=== PATIENT | female | born 1960 | race Caucasian/White ===

== ENCOUNTER → 2017-06-12 08:33 | Outpatient (CLI) | payer MEDICAID, SELFPAY ==
[2017-06-12 09:13] LABS: Basophils % 0.4 % (0.1-2.0); Eosinophils # 0.1 K/mm3 (0.0-0.4); Eosinophils % 2.8 % (0.1-12.0); Hematocrit 38.3 % (37.0-47.0); Hemoglobin 12.4 g/dL (12.2-16.2); Lymphocytes % 22.5 K/mm3 (10-50); Mean Corpuscular HGB Conc 32.3 g/dL (31.8-35.4); Mean Corpuscular Hemoglobin 32.6 pg (27.0-31.2); Mean Corpuscular Volume 100.8 fl (81-99); Mean Platelet Volume 8.2 fl (7.4-10.4); Monocytes # 0.3 K/mm3 (0.1-1.0); Monocytes % 6.5 % (1.7-9.3); Neutrophils # 3.1 K/mm3 (1.8-7.8); Neutrophils % 67.8 % (37.0-80.0); Platelet Count 160 K/mm3 (142-424); Red Cell Distribution Width 12.6 % (11.5-17.5); White Blood Count 4.6 K/mm3 (4.8-10.8)
[2017-06-12 09:33] LABS: Alanine Aminotransferase 17 U/L (12-78); Albumin Level 3.4 gm/dL (3.4-5.0); Albumin/Globulin Ratio 0.9 (1.1-1.8); Alkaline Phosphatase 151 U/L (46-116); Anion Gap 6.6 mEq/L (5-15); Aspartate Amino Transferase 13 U/L (15-37); Bilirubin,Total 0.4 mg/dL (0.2-1.0); Blood Urea Nitrogen 17 mg/dL (7-18); Calcium 9.1 mg/dL (8.5-10.1); Carbon Dioxide 33 mmol/L (21.0-32.0); Chloride 102 mmol/L (98-107); Creatinine,Serum 0.88 mg/dL (0.55-1.02); Estimated Glomerular Filt Rate 66 ml/min (>60); GFR (African American) 80 ML/MIN (>60); Globulin 3.9 gm/dl (1.3-3.2); Glucose 80 mg/dL (74-106); Potassium 4.6 mmoL/L (3.5-5.1); Sodium 137 mmol/L (136-145); Total Protein,Serum 7.3 gm/dL (6.4-8.2)
== END ==
PROVIDERS: Visit Provider Internal Medicine
DX: D64.9 Anemia, unspecified (principal)
CPT/HCPCS: 36415; 80053; 85025

== ENCOUNTER → 2018-10-29 16:28 | Outpatient (CLI) | payer MEDICAID, SELFPAY ==
--- NOTE | 2018-10-29 | XR_ITS ---
XR chest 2V HISTORY: Shortness of air, ITS.REASON: SOA ORDERING PHYSICIAN: Rafi Corral MD PATIENT AGE: 58 years COMPARISON: None FINDINGS: There is borderline cardiomegaly without failure. Groundglass nodular density is noted in the right upper lobe laterally at 14 mm. The remaining lungs are clear. No effusions. IMPRESSION: 14 mm groundglass opacity noted in the right upper lobe. This could be due to a small area of infiltrate. Cannot exclude the possibility of a developing nodule. CT may better differentiate.
== END ==
PROVIDERS: PCP Family Medicine; Visit Provider Family Medicine
DX: R06.02 Shortness of breath (principal)
CPT/HCPCS: 71046

== ENCOUNTER → 2018-11-13 12:34 | Outpatient (CLI) | payer MEDICAID, SELFPAY ==
--- NOTE | 2018-11-13 12:43 | CT_ITS ---
CT chest w con HISTORY: ITS.REASON: DYSPNEA ON EXERTION, ABNORMAL CXR ORDERING PHYSICIAN: Rafi Corral MD PATIENT AGE: 58 years COMPARISON: 10/29/2018 Technique: Contrast Used:75ml Optiray 350 Axial images were obtained. Sagittal, and coronal reformatted images are also generated and reviewed. All CT scans at the facility use one or more dose reduction, viz: automated exposure control, ma/kV adjustment per patient size (including targeted exams where dose is matched to indication, i.e. head), or iterative reconstruction technique. FINDINGS: Calcified nodes are present in the mediastinum and right hilum. Normal heart size. Small hiatal hernia is present with mild thickening of the mid and distal esophagus. There are coronary artery calcifications Patchy subpleural increased density in the right upper lobe laterally corresponding to the radiographic abnormality. This area measures approximately 2.6 x 1.6 cm. There is a calcified granuloma also in the right upper lobe. No pleural effusion. Upper abdominal images demonstrates a thickened bowel loop in the mid abdominal region. This is incompletely imaged and appears to represent a thickened loop of jejunum. IMPRESSION: 1. Patchy subpleural density in the right upper lobe laterally corresponds to the radiographic abnormality. Nonspecific and may represent an area of infiltrate or scarring. Neoplasm is not totally excluded. Suggest 3 month follow up. 2. Hiatal hernia with thickened distal. At this which may be seen with reflux esophagitis. 3. Old granulomatous disease. 4. Thickened small bowel loop in the upper abdomen suggesting enteritis. CT abdomen may be of further value if warranted
[2018-11-13 12:51] LABS: Blood Urea Nitrogen 15 mg/dL (7-18); Creatinine,Serum 0.96 mg/dL (0.55-1.02); Estimated Glomerular Filt Rate 59 ml/min (>60); GFR (African American) 72 ML/MIN (>60)
== END ==
PROVIDERS: Visit Provider Family Medicine
DX: R06.09 Other forms of dyspnea (principal); R93.89 Abnormal findings on diagnostic imaging of other specified body structures
CPT/HCPCS: 36415; 71260; 82565; 84520; Q9967

== ENCOUNTER → 2019-02-16 11:37 | Outpatient (CLI) | payer OTHER, SELFPAY ==
--- NOTE | 2019-02-16 12:13 | CT_ITS ---
PROCEDURE: CT CHEST W CON CLINCAL INDICATION: ABN CT OF CHEST /follow-up abnormal chest CT COMPARISON: CHESTW CT chest w con from 11/13/2018 TECHNIQUE: IV Contrast: 75ml Optiray 350 Axial images obtained with sagittal and coronal reformats. All CT scans at the facility use one or more dose reduction, viz: automated exposure control, ma/kV adjustment per patient size (including targeted exams where dose is matched to indication, i.e. head), or iterative reconstruction technique. FINDINGS: HEART,AORTA,PULMONARY ARTERIES coronary artery calcifications are present. Normal heart size. No evidence of aortic aneurysm or central pulmonary embolus. MEDIASTINAL AND HILAR STRUCTURES: A partially calcified mediastinal lymph nodes once again noted. There is mild thickening of the distal esophagus containing a small amount of air. This is nonspecific but could be seen with reflux esophagitis. The LUNGS: There is patchy peripheral consolidation once again noted in the right upper lobe posterior laterally. This appears slightly more prominent on the axial images but does not appear significantly changed on the reformatted coronal images. This is probably not significantly changed. The slight difference on the axial images may be related to slice orientation. Continued follow-up is suggested. No bony destruction evident. Calcified granuloma is present in the right upper lobe. No new pulmonary abnormalities PLEURAL SPACES: No significant effusion. No evidence of pneumothorax. BONY STRUCTURES: No acute bony abnormalities apparent. LYMPH NODES: Partially calcified nodes are present in the mediastinum. There are small nodes in the aortopulmonic window which are unchanged. UPPER ABDOMEN: Mild thickening of the distal esophagus ADDITIONAL FINDINGS: No other significant abnormalities. IMPRESSION: 1. Probably no significant change involving the peripheral consolidation in the right upper lobe. Suggest continued follow-up in 6 months. 2. Possible esophagitis 3. Otherwise negative Dictated by: Bin Tang MD 02/17/2019 07:21 Electronically signed by Bin Tang MD in [facility] 02/17/2019 07:21
--- NOTE | 2019-02-16 12:19 | XR_ITS ---
PROCEDURE: XR CHEST 2V CLINICAL HISTORY: PATCHY SUBPLEURAL DENSITY RT UPPER LOBE SEEN ON CT The COMPARISON: CHESTW CT chest w con from 11/13/2018 CT CHEST W CON from 02/16/2019 FINDINGS: The cardiomediastinal silhouette and pulmonary vascularity are within normal limits. Patchy density is once again noted in the subpleural region of the right upper lobe corresponding to the CT abnormality. Calcified granuloma is present in the right upper lobe. The remaining lungs are clear. There exaggeration of the thoracic kyphosis No acute bony abnormalities. IMPRESSION: Nonspecific patchy density once again noted in the right upper lobe in the subpleural region. This is nonspecific and could be related to chronic infection or inflammatory process, scarring, or even neoplasm. Dictated by: Bin Tang MD 02/16/2019 16:42 Electronically signed by Bin Tang MD in [facility] 02/16/2019 16:42
[2019-02-16 12:20] LABS: Blood Urea Nitrogen 17 mg/dL (7-18); Estimated Glomerular Filt Rate 57 ml/min (>60); GFR (African American) 68 ML/MIN (>60)
== END ==
PROVIDERS: PCP Family Medicine; Visit Provider Family Medicine
DX: R93.89 Abnormal findings on diagnostic imaging of other specified body structures (principal)
CPT/HCPCS: 36415; 71046; 71260; 82565; 84520; Q9967

== ENCOUNTER → 2019-06-22 10:06 | Outpatient (CLI) | payer OTHER, SELFPAY ==
--- NOTE | 2019-06-22 10:13 | XR_ITS ---
PROCEDURE: XR FOOT WT BEARING LT 3V CLINICAL INDICATION: charcot Pain and swelling COMPARISON: [id number] XR foot RT min 3V from 09/26/2017 [id number] XR foot LT min 3V from 08/19/2018 FINDINGS: Osteoarthritic changes are present at the 1st MTP joint. There are degenerative changes in the midfoot at the talonavicular and calcaneocuboid joints. There is pes planus. Hypertrophic changes are present dorsally at the talonavicular joint. There is a small calcaneal spur. IMPRESSION: No change in the degenerative changes with pes planus Dictated by: Bin Tang MD 06/22/2019 11:58 Electronically signed by Bin Tang MD in [facility] 06/22/2019 11:58
--- NOTE | 2019-06-22 10:13 | XR_ITS ---
PROCEDURE: XR ANKLE WT BEARING LT MIN 3V CLINICAL INDICATION: charcot Left foot and ankle pain COMPARISON: ANKCMRT XR ankle RT min 3V from 09/26/2017 XR ANKLE LT MIN 3V from 06/11/2019 FINDINGS: There has been interval development of a nondisplaced fracture involving the distal shaft of the fibula. The fracture is 6 cm proximal to the tip of the fibula. The ankle mortise appears preserved. There is mild lateral angulation of the distal fracture fragment. The ankle joint is slightly narrowed laterally. IMPRESSION: Nondisplaced distal fibular fracture as described above Dictated by: Bin Tang MD 06/22/2019 11:51 Electronically signed by Bin Tang MD in [facility] 06/22/2019 11:51
== END ==
PROVIDERS: PCP Family Medicine; Visit Provider Podiatrist
DX: M14.672 Charcot's joint, left ankle and foot (principal); M79.672 Pain in left foot
CPT/HCPCS: 73610; 73630

== ENCOUNTER → 2019-07-07 09:26 | Outpatient (CLI) | payer OTHER, SELFPAY ==
--- NOTE | 2019-07-07 09:34 | XR_ITS ---
PROCEDURE: XR FOOT WT BEARING LT 3V CLINICAL INDICATION: charcot COMPARISON: [id number] XR foot RT min 3V from 09/26/2017 [id number] XR foot LT min 3V from 08/19/2018 XR FOOT WT BEARING LT 3V from 06/22/2019 FINDINGS: Osteoarthritic change 1st MTP joint with bony hypertrophy. Hammertoe deformity digits 2 through 5. Osteoarthritis of the foot at the calcaneocuboid, talonavicular, navicular cuneiform joint. Osteoarthritic changes of the anterior and posterior subtalar joint with severe pes planus. IMPRESSION: No change osteoarthritis of the foot with pes planus Dictated by: Bin Tang MD 07/07/2019 15:29 Electronically signed by Bin Tang MD in [facility] 07/07/2019 15:29
--- NOTE | 2019-07-07 09:34 | XR_ITS ---
PROCEDURE: XR ANKLE WT BEARING LT MIN 3V CLINICAL INDICATION: charcot Pain COMPARISON: [id number] XR ankle RT min 3V from 09/26/2017 XR ANKLE LT MIN 3V from 06/11/2019 XR ANKLE WT BEARING LT MIN 3V from 06/22/2019 FINDINGS: There is a healing fracture involving the distal shaft of the fibula with minimal lateral angulation of the distal fracture fragment. The fracture is nondisplaced. There is overlying developing callus formation. There remains mild narrowing of the ankle joint space laterally. IMPRESSION: Healing fracture of the distal fibula Dictated by: Bin Tang MD 07/07/2019 15:21 Electronically signed by Bin Tang MD in [facility] 07/07/2019 15:21
== END ==
PROVIDERS: PCP Family Medicine; Visit Provider Podiatrist
DX: M14.672 Charcot's joint, left ankle and foot (principal)
CPT/HCPCS: 73610; 73630

== ENCOUNTER → 2019-07-21 08:50 | Outpatient (CLI) | payer OTHER, SELFPAY ==
--- NOTE | 2019-07-21 08:55 | XR_ITS ---
PROCEDURE: XR FOOT WT BEARING LT 3V CLINICAL INDICATION: charcot follow up, fracture COMPARISON: [id number] XR foot RT min 3V from 09/26/2017 [id number] XR foot LT min 3V from 08/19/2018 XR FOOT WT BEARING LT 3V from 06/22/2019 XR FOOT WT BEARING LT 3V from 07/07/2019 FINDINGS: There is severe pes planus with osteoarthritic change of the talonavicular joint and calcaneocuboid joint. Overall not significantly changed. The joint spaces are well-preserved. No significant degenerative/arthritic changes. No erosive changes evident. Other findings:Hammertoe deformity 2 through 5 toes. Osteoarthritis 1st MTP joint IMPRESSION: Overall no change severe pes planus with osteoarthritis Dictated by: Bin Tang MD 07/21/2019 11:15 Electronically signed by Bin Tang MD in [facility] 07/21/2019 11:15
--- NOTE | 2019-07-21 08:55 | XR_ITS ---
PROCEDURE: XR ANKLE WT BEARING LT MIN 3V CLINICAL INDICATION: charcot follow up Follow-up fracture COMPARISON: ANKCMRT XR ankle RT min 3V from 09/26/2017 XR ANKLE LT MIN 3V from 06/11/2019 XR ANKLE WT BEARING LT MIN 3V from 06/22/2019 XR ANKLE WT BEARING LT MIN 3V from 07/07/2019 FINDINGS: There is a healing distal fibular fracture with developing callus formation nondisplaced with minimal lateral angulation of the distal fracture fragment. The talus is tilted and slightly everted. Talar dome has an unremarkable appearance. Severe pes planus noted IMPRESSION: Healing distal fibular shaft fracture with mild talar tilt Dictated by: Bin Tang MD 07/21/2019 11:13 Electronically signed by Bin Tang MD in [facility] 07/21/2019 11:13
== END ==
PROVIDERS: PCP Family Medicine; Visit Provider Podiatrist
DX: S82.832A Other fracture of upper and lower end of left fibula, initial encounter for closed fracture (principal); E11.610 Type 2 diabetes mellitus with diabetic neuropathic arthropathy
CPT/HCPCS: 73610; 73630

== ENCOUNTER → 2019-08-20 08:31 | Outpatient (CLI) | payer OTHER, SELFPAY ==
--- NOTE | 2019-08-20 08:36 | XR_ITS ---
PROCEDURE: XR FOOT WT BEARING LT 3V CLINICAL INDICATION: follow up Charcot foot, follow-up COMPARISON: [id number] XR foot LT min 3V from 08/19/2018 XR FOOT WT BEARING LT 3V from 06/22/2019 XR FOOT WT BEARING LT 3V from 07/07/2019 XR FOOT WT BEARING LT 3V from 07/21/2019 XR ANKLE WT BEARING LT MIN 3V from 08/20/2019 FINDINGS: There is diffuse osteopenia with severe pes planus and osteoarthritic change of the midfoot with hammertoe deformity similar to the previous exam. There is an old fracture of the distal shaft of the fibula. The talus is slightly allyson it. There is a small calcaneal spur. No bony destructive process apparent. Overall no significant change from the previous study. Osteoarthritic changes are present at the 1st MTP joint. There are old fractures of the distal aspect of the 3rd and 4th metatarsals IMPRESSION: No change severe pes planus with midfoot osteoarthritic change. Dictated by: Bin Tang MD 08/20/2019 10:30 Electronically signed by Bin Tang MD in [facility] 08/20/2019 10:30
--- NOTE | 2019-08-20 08:36 | XR_ITS ---
PROCEDURE: XR FOOT WT BEARING LT 3V CLINICAL INDICATION: follow up Charcot foot, follow-up COMPARISON: [id number] XR foot LT min 3V from 08/19/2018 XR FOOT WT BEARING LT 3V from 06/22/2019 XR FOOT WT BEARING LT 3V from 07/07/2019 XR FOOT WT BEARING LT 3V from 07/21/2019 XR ANKLE WT BEARING LT MIN 3V from 08/20/2019 FINDINGS: There is diffuse osteopenia with severe pes planus and osteoarthritic change of the midfoot with hammertoe deformity similar to the previous exam. There is an old fracture of the distal shaft of the fibula. The talus is slightly allyson it. There is a small calcaneal spur. No bony destructive process apparent. Overall no significant change from the previous study. Osteoarthritic changes are present at the 1st MTP joint. There are old fractures of the distal aspect of the 3rd and 4th metatarsals IMPRESSION: No change severe pes planus with midfoot osteoarthritic change. Dictated by: Bin Tang MD 08/20/2019 10:30 Electronically signed by Bin Tang MD in [facility] 08/20/2019 10:30
== END ==
PROVIDERS: PCP Family Medicine; Visit Provider Podiatrist
DX: M14.672 Charcot's joint, left ankle and foot (principal); S82.832A Other fracture of upper and lower end of left fibula, initial encounter for closed fracture; S93.402A Sprain of unspecified ligament of left ankle, initial encounter
CPT/HCPCS: 73610; 73630

== ENCOUNTER → 2019-09-03 13:32 | Outpatient (CLI) | payer OTHER, SELFPAY ==
--- NOTE | 2019-09-03 13:36 | XR_ITS ---
PROCEDURE: XR ANKLE WT BEARING LT MIN 3V CLINICAL INDICATION: pain COMPARISON: XR ANKLE WT BEARING LT MIN 3V from 06/22/2019 XR ANKLE WT BEARING LT MIN 3V from 07/07/2019 XR FOOT WT BEARING LT 3V from 07/07/2019 XR ANKLE WT BEARING LT MIN 3V from 07/21/2019 XR FOOT WT BEARING LT 3V from 09/03/2019 FINDINGS: There is a healing fracture involving the distal shaft of the fibula. Fracture line is still visible. The ankle mortise is preserved. There is pes planus OSTEOARTHRITIC CHANGES ARE PRESENT AT THE 1ST MTP JOINT AND AT THE 1ST METATARSAL TARSAL JOINT. THERE IS SOME PERIARTICULAR CALCIFICATION DORSALLY AT THE TALONAVICULAR JOINT. THERE ARE OSTEOARTHRITIC CHANGES AT THE TALONAVICULAR JOINT AND THE CALCANEOCUBOID JOINT. IMPRESSION: 1. Healing distal fibular fracture. 2. Pes planus with osteoarthritis of the foot Dictated by: Bin Tang MD 09/03/2019 14:02 Electronically signed by Bin Tang MD in [facility] 09/03/2019 14:02
== END ==
PROVIDERS: PCP Family Medicine; Visit Provider Podiatrist
DX: E11.610 Type 2 diabetes mellitus with diabetic neuropathic arthropathy (principal); M14.672 Charcot's joint, left ankle and foot; M79.672 Pain in left foot
CPT/HCPCS: 73610; 73630

== ENCOUNTER → 2019-10-01 09:03 | Outpatient (CLI) | payer OTHER, SELFPAY ==
--- NOTE | 2019-10-01 09:14 | XR_ITS ---
PROCEDURE: XR FOOT WT BEARING LT 3V CLINICAL INDICATION: follow up Follow-up fracture, pain COMPARISON: XR FOOT WT BEARING LT 3V from 07/07/2019 XR FOOT WT BEARING LT 3V from 07/21/2019 XR FOOT WT BEARING LT 3V from 08/20/2019 XR FOOT WT BEARING LT 3V from 09/03/2019 FINDINGS: Pes planus. Generalized osteopenia. Degenerative changes midfoot. Hammertoe deformity digits 2 through 5 with possible old fractures of the 4th and 3rd metatarsals. Other findings:Old distal fibular shaft fracture IMPRESSION: No change osteopenia with pes planus hammertoe deformity and old fractures Dictated by: Bin Tang MD 10/01/2019 17:02 Electronically signed by Bin Tang MD in [facility] 10/01/2019 17:02
--- NOTE | 2019-10-01 09:14 | XR_ITS ---
PROCEDURE: XR FOOT WT BEARING RT 3V CLINICAL INDICATION: follow up Pain COMPARISON: XR FOOT WT BEARING LT 3V from 07/07/2019 XR FOOT WT BEARING LT 3V from 07/21/2019 XR FOOT WT BEARING LT 3V from 08/20/2019 XR FOOT WT BEARING LT 3V from 09/03/2019 FINDINGS: Osteoarthritic changes are present at the 1st interphalangeal joint with mild lateral subluxation of the distal phalanx of the great toe. Mild osteoarthritic changes are present at the talonavicular and navicular cuneiform and tarsometatarsal junction. There is borderline pes planus. No fracture or dislocation. Flexion deformity involves the 2nd through 5th toes. IMPRESSION: Pes planus with degenerative changes and hammertoe deformity Dictated by: Bin Tang MD 10/01/2019 17:04 Electronically signed by Bin Tang MD in [facility] 10/01/2019 17:04
== END ==
PROVIDERS: Visit Provider Podiatrist
DX: S82.832A Other fracture of upper and lower end of left fibula, initial encounter for closed fracture (principal); S93.402A Sprain of unspecified ligament of left ankle, initial encounter; E11.610 Type 2 diabetes mellitus with diabetic neuropathic arthropathy
CPT/HCPCS: 73630

== ENCOUNTER → 2021-10-05 10:30 | Outpatient (CLI) | payer OTHER, SELFPAY ==
--- NOTE | 2021-10-05 10:34 | XR_ITS ---
FINAL REPORT CLINICAL HISTORY: ulcer, pain, cellultis COMPARISON: October 01, 2019 FINDINGS: LEFT FOOT Three views of the left foot demonstrate chronic fractures of the distal 3rd and 4th metatarsals. There is pes planus deformity. The bones are osteopenic. There is mild degenerative change. There is a plantar calcaneal spur. No there is no definite bony erosion. The visualized joint spaces are normally aligned. The soft tissues are unremarkable. IMPRESSION: No acute bony abnormality. No definite bony erosion. Reviewed, Interpreted and Dictated by Evans Pederson III, MD Transcribed by Orin Potter Authenticated and [facility]
[2021-10-05 11:12] LABS: Basophils % 0.3 % (0.1-2.0); Eosinophils # 0.1 K/mm3 (0.0-0.4); Eosinophils % 1.2 % (0.1-12.0); Hematocrit 33.1 % (37.0-47.0); Hemoglobin 11.6 g/dL (12.2-16.2); Lymphocytes # 0.7 K/mm3 (0.7-4.5); Lymphocytes % 16.1 % (10-50); Mean Corpuscular HGB Conc 34.9 g/dL (31.8-35.4); Mean Corpuscular Hemoglobin 32.1 pg (27.0-31.2); Mean Platelet Volume 9.4 fl (7.4-10.4); Monocytes # 0.3 K/mm3 (0.1-1.0); Monocytes % 6.4 % (1.7-9.3); Neutrophils # 3.2 K/mm3 (1.8-7.8); Platelet Count 183 K/mm3 (142-424); White Blood Count 4.2 K/mm3 (4.8-10.8)
[2021-10-05 11:58] LABS: Alanine Aminotransferase 17 U/L (12-78); Albumin Level 3.8 g/dl (3.5-5.0); Albumin/Globulin Ratio 1.2 (1.1-1.8); Alkaline Phosphatase 103 U/L (38-126); Aspartate Amino Transferase 25 U/L (14-36); Blood Urea Nitrogen 9 mg/dl (7-17); Calcium 9.1 mg/dl (8.4-10.2); Carbon Dioxide 29 mmol/L (22.0-30.0); Chloride 96 mmol/L (98-107); Estimated Glomerular Filt Rate 63 ml/min (>60); GFR (African American) 77 ML/MIN (>60); Globulin 3.1 g/dL (1.3-3.2); Glucose 112 mg/dl (74-100); Sodium 134 mmol/L (136-145); Total Protein,Serum 6.9 g/dl (6.3-8.2)
[2021-10-05 12:02] LABS: Bilirubin,Total < 0.1 mg/dl (0.2-1.3); C-Reactive Protein 12.7 mg/L (0-4)
[2021-10-05 13:03] LABS: Erythrocyte Sedimentation Rate 138 mm/hr (0-30)
== END ==
PROVIDERS: Visit Provider Nurse Practitioner Family
DX: L84 Corns and callosities (principal)
CPT/HCPCS: 36415; 73630; 80053; 85025; 85651; 86140; 87070; 87186; 87205

== ENCOUNTER → 2021-10-05 16:49 | Outpatient (CLI) | payer OTHER, SELFPAY | PROVIDERS: Visit Provider Podiatrist | DX: L84 Corns and callosities (principal) ==

== ENCOUNTER → 2021-10-24 10:06 | Outpatient (CLI) | payer OTHER, SELFPAY ==
--- NOTE | 2021-10-24 10:12 | XR_ITS ---
FINAL REPORT CLINICAL HISTORY: wound COMPARISON: October 05, 2021 FINDINGS: 3 simulated weight-bearing views of the left foot were obtained. The bones are osteopenic. There is no acute fracture or dislocation. There are moderate changes of osteoarthritis at the 1st MTP and IP joints. A moderate plantar spur is present. There are no bony erosions or periosteal reaction. The soft tissues are unremarkable. IMPRESSION: No acute process. Reviewed, Interpreted and Dictated by Buddy Sarabia MD Transcribed by Enzo Hummel Authenticated and [facility]
[2021-10-24 11:20] LABS: Basophils % 0.7 % (0.1-2.0); Eosinophils % 0.6 % (0.1-12.0); Hemoglobin 13.4 g/dL (12.2-16.2); Lymphocytes % 17.2 % (10-50); Mean Corpuscular HGB Conc 31.8 g/dL (31.8-35.4); Mean Corpuscular Hemoglobin 31.7 pg (27.0-31.2); Mean Corpuscular Volume 99.7 fl (81-99); Monocytes # 0.4 K/mm3 (0.1-1.0); Monocytes % 6.4 % (1.7-9.3); Neutrophils # 4.2 K/mm3 (1.8-7.8); Neutrophils % 75.1 % (37.0-80.0); Platelet Count 151 K/mm3 (142-424); Red Blood Count 4.21 M/mm3 (4.20-5.40); Red Cell Distribution Width 14.8 % (11.5-17.5); White Blood Count 5.5 K/mm3 (4.8-10.8)
[2021-10-24 11:24] LABS: Chloride 96 mmol/L (98-107); Sodium 128 mmol/L (136-145)
[2021-10-24 11:25] LABS: Potassium 3.9 mmoL/L (3.5-5.1)
[2021-10-24 11:27] LABS: Alanine Aminotransferase 143 U/L (12-78); Albumin Level 3.5 g/dl (3.5-5.0); Albumin/Globulin Ratio 1.2 (1.1-1.8); Alkaline Phosphatase 139 U/L (38-126); Anion Gap 11.9 mEq/L (5-15); Aspartate Amino Transferase 114 U/L (14-36); Blood Urea Nitrogen 30 mg/dl (7-17); Calcium 9.1 mg/dl (8.4-10.2); Carbon Dioxide 24 mmol/L (22.0-30.0); Estimated Glomerular Filt Rate 41 ml/min (>60); GFR (African American) 50 ML/MIN (>60); Globulin 2.9 g/dL (1.3-3.2); Glucose 138 mg/dl (74-100); Total Protein,Serum 6.4 g/dl (6.3-8.2)
[2021-10-24 11:33] LABS: C-Reactive Protein 1.4 mg/L (0-4)
[2021-10-24 12:00] LABS: Erythrocyte Sedimentation Rate 11 mm/hr (0-30)
== END ==
PROVIDERS: PCP Family Medicine; Visit Provider Nurse Practitioner Family
DX: L84 Corns and callosities (principal); M79.672 Pain in left foot
CPT/HCPCS: 36415; 73630; 80053; 85025; 85651; 86140

== ENCOUNTER 2023-08-27 14:13 | Outpatient (CLI) | payer MEDICARE, OTHER, SELFPAY ==
--- OUTSIDE RECORDS SUMMARY | 2023-08-27 14:16 | XMS_ITS | Continuity of Care Document ---
Author Name Unknown Organization [facility] Address [address] [place] [address] Phone Care Team Providers Care Member Of Parliament Name Role Phone Cliff Sargent MD Unavailable Unavailable Allergies, Adverse Reactions, Alerts Substance Reaction Status Criticality No Known Allergies Active No Inform ation Medications Medication Instructions Dosage Effective Dates (start - stop) Status Comments unknown ulcer medication (unknown strength) Not Available - Active acetaminophen 325 mg capsule - Active Claritin Liqui-Gel 10 mg capsule - Active ferrous sulfate 325 mg (65 mg iron) tablet,delayed release - Active fluticasone 50 mcg/actuation nasal spray,suspension inhale 1 spray by intranasal route every day in each nostril 50 MCG - Active Saphris [address] 1 tablet by sublingual route 2 times every day under the tongue and allow to dissolve 10 MG - Active gabapentin 300 mg capsule take 1 capsule by oral route every day 300 MG - Active Tirosint 137 mcg capsule take 1 capsule by oral route every day 137 MCG - Active docusate sodium 250 mg capsule take 1 capsule by oral route every day at bedtime as needed 250 MG - Active promethazine 25 mg tablet take 1 tablet by oral route every 4 - 6 hours as needed 25 MG - Active citalopram 20 mg tablet take 1 tablet by oral route every day 20 MG - Active divalproex ER 500 mg tablet,extended release 24 hr take 1 tablet by oral route every day 500 MG - Active lisinopril 5 mg tablet take 1 tablet by oral route every day 5 MG - Active Laxative (bisacodyl) 5 mg tablet take 1 tablet by oral route every day as needed for constipation 5 MG - Active benztropine 1 mg tablet take 1 tablet by oral route 2 times every day 1 MG - Active perphenazine 4 mg tablet take 1 tablet by oral route 2 times every day 4 MG - Active naproxen 500 mg tablet take 1 tablet by oral route 2 times every day with food 500 MG - Active metformin 500 mg tablet take 1 tablet by oral route 2 times every day with morning and evening meals 500 MG - Active Q-Tussin DM 10 mg-100 mg/5 mL syrup take 10 milliliter by oral route every 4 hours as needed - Active loperamide 2 mg capsule take 2 capsule by oral route after 1st loose stool, followed by 1 capsule after each subsequent loose stool not to exceed 16 mg/day 4 MG - Active Pred Forte 1 % eye drops,suspension instill 1 drop by ophthalmic route 4 times every day into left eye starting 1 day prior to surgery - No Longer Active 10 mL - generic ok. Please call if too expensive or not covered. ketorolac 0.5 % eye drops instill 1 drop by ophthalmic route 4 times every day into left eye after surgery - No Longer Active Please call if too expensive or not covered. Procedures Procedure Date Post Op Visit Cataract Post Op Visit Cataract Post Op Visit Cataract CATARACT SURG W/IOL, 1 STAGE Post Op Visit Cataract Post Op Visit Cataract Ophthalmic Biometry W Iol Calculation Un ilateral Post Op Visit Cataract CATARACT SURG W/IOL, 1 STAGE OFFICE/OUTPATIENT VISIT, NEW OPHTH US, B W/NON-QUANT A Ophthalmic Biometry W Iol Calculation Un ilateral DILATED MACUL EXAM DONE TALK PT CRGVR RE AREDS PREV Advance Directives Directive Yes / No Effective Date File Name No Information Encounters Encounter Description Practice Location Reason(s) For Visit Diagnoses Date Provider Providers Copied on Encounter [facility], [address] [place], [address], [place] tel:[phone] [facility] s/p 1 month Phaco (chief complaint) Follow-up examination after eye surgery 7 Arie Coronado. [address] [place], [place], [id number] . tel:[phone] Referring Provider: Nile Cheung, [address] [place], [address]. tel:[phone] [facility], [address] [place], [address], [place] tel:[phone] [facility] [address] 1 week s/p phaco (chief complaint) [facility] [address] [place], [place], [id number] . tel:[phone] Referring Provider: Nile Cheung, [address] [place], [address]. tel:[phone] [facility], [address] [place], [address], [place] tel:[phone] [facility] [address] 1 day s/p Phaco OS (chief complaint) Encntr for f/u exam aft trtmt for cond oth than malig neoplm [facility] [address] [place], [place], [id number] . tel:[phone] Referring Provider: Nile Cheung, [address] [place], [address]. tel:[phone] [facility], [address] [place], [address], [place] tel:[phone] [facility] Age-related nuclear cataract, left [facility] [address] [place], [place], [id number] . tel:[phone] Referring Provider: Nile Cheung, [address] [place], [address]. tel:[phone] [facility], [address] [place], [address], [place] tel:[phone] [facility] [address] 1 month s/p Phaco (chief complaint) Follow-up examination after eye surgeryCombined forms of age-related cataract, left eye Nov-0 2-201 6 [address] [place]. [address] [place], [place], [id number] . tel:[phone] Referring Provider: Nile Cheung, [address] [place], [address]. tel:[phone] [facility], [address] [place], [address], [place] tel:[phone] [facility] [address] 1 wk s/p phaco (chief complaint) Follow-up examination after eye surgeryAge-relate d nuclear cataract, left eye Oct-0 3- 6 [place] [place]. [address] [place], [place], [id number] . tel:[phone] Referring Provider: Nile Cheung, [address] [place], [address]. tel:[phone] [facility], [address] [place], [address], [place] tel:[phone] [facility] [address] 1 Day Phaco (chief complaint) Follow-up examination after eye surgery Sep-2 6 [place] [place]. [address] [place], [place], [id number] . tel:[phone] Referring Provider: Nile Cheung, [address] [place], [address]. tel:[phone] [facility], [address] [place], [address], [place] tel:[phone] [facility] Age-related nuclear cataract, right eye Sep-2 6-201 6 [place] [place]. [address] [place], [place], [id number] . tel:[phone] Referring Provider: Nile Cheung, [address] [place], [address]. tel:[phone] OFFICE/OUTPA TIENT VISIT, NEW [facility], [address] [facility], [place], [address], [phone] [facility] Cataract Consult per Dr. Yen (chief complaint) Mature cataractCombined form of senile cataract of left eyeDry eye syndrome, bilateralDiabetes mellitus without complicationOther age-related cataract 8-201 6 [place] [place]. [address] [place], [place], [id number] . [phone] Referring Provider: Nile Cheung, [address] [place], [address]. tel:[phone] Family History Family Member Type Diagnosis Age At Onset Problem (finding) No family history of Hi gh blood pressure Mother Problem (finding) Maternal history of james betes mellitus Problem (finding) No family history of Gl aucoma Problem (finding) No family history of Re tinal disease Mother Problem (finding) cataract Problem (finding) No family history of Ca ncer, unknown Payers Payer name Insurance type Covered libertarian ID Authoriza tion(s) Self Pay [id number] Social History Type Description Quantity Date Captured Comments Alcohol Use Details Unknown Caffeine Use Details Unknown Tobacco Use Status No Information Smoking Status No Information Sex Female Chief Complaint And Reason For Visit From encounter dated '05/23/2016 10:45'. s/p 1 month Phaco (chief complaint). Description: The 55 year old female presents for evaluation ofs/p 1 month Phaco in the left eye. Pt describes condition as better and denies any eye pain or discomfort OU. Pt denies any changes in OD. Pt states she has finished drops schedule. Reason For Referral Reason For Referral No Information History Of Present Illness Encounter Date Complaint History Of Prese nt Illness s/p 1 month Phaco The 55 year ol d female presents for evaluation of s/p 1 month Phaco in the left eye. Pt describes condition as better and denies any eye pain or discomfort OU. Pt denies any changes in OD. Pt states she has finished drops schedule. 1 week s/p phaco The 56 year old female presents for a 1 week s/p phaco in the left eye. The patient feels vision is improving in the left eye. Patient states she feels a dull pain in the left eye. Patient denies using eye drops. Patient states she is following the drop sheet, it appears patient only used vigamox and pred forte 0/2 yesterday. Pt is wearing shield during the day. 1 day s/p Phaco OS The 56 year o ld female presents for 1 day s/p Phaco OS in the left eye. Patient states that vision is a little blurry, but she notices an improvement. Patient denies any drop problems and is using drops correctly, eye pain, flashes, floaters and headaches. 1 month s/p Phaco The 56 year ol d female presents for a 1 month s/p Phaco in the right eye. The patient feels distance vision has improved OD since Sx. States her OS is still blurry, and has difficulty watching TV OS. Patient denies decreased vision, eye pain, flashes, floaters and headaches. 1 wk s/p phaco The 56 year old female presents for evaluation of 1 wk s/p phaco in the right eye. The patient feels vision is improving OD. Patient denies eye pain and any drop problems and is using drops correctly. Pt c/o the following OS: trouble reading small print, books/newspapers, seeing steps/curbs and trouble playing bingo. 1 Day Phaco The 56 year old female presents for evaluation of 1 Day Phaco in the right eye. Shield OD, removed at appt. Pt states eye are comfortable. Pt is using drops as prescribed, states that drops burn when first used. Pt denies pain. Cataract Consult per Dr. Farshad Amador he 56 year old female presents for a Cataract Consult per Dr. Yen in the right and left eyes. Patient is with her sister today. The patient states she has noticed a progressive decrease in both near and distance vision. Patient states vision is cloudy OD>OS. Patient sister states she complains of having difficulty reading small print and watching TV. Patient states to limiting her ability to read. Patient does not drive but states to having light sensitivity OU. Complains of excessive tearing OD. Patient denies eye pain, flashes, floaters and headaches. Functional Status Date Functional Assessmen t No Information Instructions Date Instruction Additional Infor melvi - phacos look good. Some NPDR OS. No macular edemaRec BP and glucose control and f/u with comprehensive OD and MD for general exams Okay to get MRx glassesF/u PRN with FBC Related to See impression details - Doing well.Pred 0/ 3, then taper weeklyStop AbxUse ATS QID RD and RSVP precautions discussed, pt knows to call ASAPF/u 1 month for IOP, refract and dilate OS Related to See impression details - Surface dry but ot herwise looks goodStart pred 0/4, then taper weeklyStart abx 0/4 x 1 wkHold off ketorolac due to drynessUse ATS QID RD and RSVP precautions discussed, pt knows to call ASAPF/u 1 week for IOP, refract and dilate OS Related to See impression details - Doing well OD. Pt happy with ODWill leave nylon in place.Use ATsRD and RSVP precautions discussed, pt knows to call ASAPPlan phaco OSGeneral anesthesia (schizophrenia)May need malyugin. Possible trypanAim plano+23.5D SN60WF OS Related to See impression details - Great improvement (LP preop). K edema much improved. Eye is a bit dry. Optic nerve with slightly increased c/d -- consider glaucoma work up eventuallyWill leave nylon in place.Taper Durezol and Ketorolac (both 3/0 for now)Stop AbxUse ATsRD and RSVP precautions discussed, pt knows to call ASAPF/u 1 month for IOP, refract and dilate OD. Consider phaco OS Related to See impression details - Some improvement a lready at 20/200 from LP OD. +corneal edema should improveStart Durezol 4/0 -- if runs out can use Pred q2 hr ODStart abx 4/0 x 1 wkKetorolac 4/0RD and RSVP precautions discussed, pt knows to call ASAPF/u 1 week for IOP, refract and dilate OD Related to See impression details - Pt wants to try ph aco OD first and consider OS afterThe patient has a visually significant cataract that affects activities of daily living. Cataract surgery was offered to the Right Eye to try and rehabilitate the patient's vision and patient desires to proceed. Discussed intraocular lens options. Patient Declines Toric and desires monofocal IOL and understands the need for spectacle correction following surgery. Aim for plano to -0.50 sphere. Risks, benefits, alternatives to surgery discussed with patient including infection, bleeding, permanent vision loss, loss of the eye, retinal edema or detachment, need for additional surgery and glasses, and other unforeseen adverse events. The patient agrees to proceed. Schedule phaco ODDeclines toric, wants plano (to watch TV)GENERAL ANESTHESIA (pt with schizophrenia and afraid she will move)SN60WF +23.0+malyugin, +TrypanDiscussed guarded prognosis and increased risk of complication OD with pt and sisterUse ATs QID OUBP/glucose control discussed Related to See impression details Assessments Type Assessment Date assessment Follow-up examination after eye surgery Patient Care Teams Name Effective Dates (start - stop) Status Members No Information
--- NOTE | 2023-08-27 14:21 | XR_ITS ---
FINAL REPORT CLINICAL HISTORY: Left foot Pain COMPARISON: 10/24/2021 FINDINGS: LEFT FOOT: Three views of the left foot were obtained. Pes planus deformity is noted. There is no acute fracture or dislocation. There is a plantar calcaneal spur. Valgus angulation of the foot is noted. There is mild and moderate degenerative change. There is no soft tissue abnormality. IMPRESSION: Chronic/degenerative changes without acute bony abnormality. Reviewed, Interpreted and Dictated by Evans Pederson III, MD Transcribed by Mayela Virgen Authenticated and . [facility]
== END 2023-08-27 23:59 | disposition home or self-care (01) ==
LOC: RAD 14:14
PROVIDERS: PCP Family Medicine; Visit Provider Podiatrist
DX: M79.672 Pain in left foot (principal)
CPT/HCPCS: 73630

== ENCOUNTER 2023-09-10 12:26 | Outpatient (CLI) | payer MEDICARE, OTHER, SELFPAY ==
--- OUTSIDE RECORDS SUMMARY | 2023-09-10 12:30 | XMS_ITS | Continuity of Care Document ---
Author Name Unknown Organization [facility] Address [address] [place] [address] Phone Care Team Providers Care Cover Seamer Name Role Phone Cliff Sargent MD Unavailable [...] in each nostril 50 MCG - Active loperamide 2 mg capsule take 2 capsule by oral route after 1st loose stool, followed by 1 capsule after each subsequent loose stool not to exceed 16 mg/day 4 MG - Active Q-Tussin DM 10 mg-100 mg/5 mL syrup take 10 milliliter by oral route every 4 hours as needed - Active metformin 500 mg tablet take 1 tablet by oral route 2 times every day with morning and evening meals 500 MG - Active naproxen 500 mg tablet take 1 tablet by oral route 2 times every day with food 500 MG - Active perphenazine 4 mg tablet take 1 tablet by oral route 2 times every day 4 MG - Active benztropine 1 mg tablet take 1 tablet by oral route 2 times every day 1 MG - Active Laxative (bisacodyl) 5 mg tablet take 1 tablet by oral route every day as needed for constipation 5 MG - Active lisinopril 5 mg tablet take 1 tablet by oral route every day 5 MG - Active divalproex ER 500 mg tablet,extended release 24 hr take 1 tablet by oral route every day 500 MG - Active citalopram 20 mg tablet take 1 tablet by oral route every day 20 MG - Active promethazine 25 mg tablet take 1 tablet by oral route every 4 - 6 hours as needed 25 MG - Active docusate sodium 250 mg capsule take 1 capsule by oral route every day at bedtime as needed 250 MG - Active Tirosint 137 mcg capsule take 1 capsule by oral route every day 137 MCG - Active gabapentin 300 mg capsule take 1 capsule by oral route every day 300 MG - Active Saphris [address] 1 tablet by sublingual route 2 times every day under the tongue and allow to dissolve 10 MG - Active Pred Forte 1 % [...] Diagnoses Date Provider Providers Copied on Encounter [facility] bebo, [address] [place], [address], [place] tel:[phone] [facility] s/p 1 month Phaco (chief complaint) Follow-up examination after eye surgery 7 Arie Coronado. [address] [place], [place], [id number] . tel:[phone] Referring Provider: Nile Cheung, [address] [place], [address]. tel:[phone] [facility], [address] [place], [address], [place] tel:[phone] [facility] [address] 1 week s/p phaco (chief complaint) Follow-up examination [facility] [address] [place], [place], [id number] . tel:[phone] Referring Provider: Nile Cheung, [address] [place], [address]. tel:[phone] [facility], [address] [place], [address], [place] tel:[phone] [facility] [address] 1 day s/p Phaco OS (chief complaint) Encntr for f/u exam aft trtmt for cond oth than malig neoplm 6 [facility] [address] [place], [place], [id number] . tel:[phone] Referring Provider: Nile Cheung, [address] [place], [address]. tel:[phone] [facility], [address] [place], [address], [place] tel:[phone] [facility] Age-related nuclear cataract, left eye [facility] [address] [place], [place], [id number] . tel:[phone] Referring Provider: Nile Cheung, [address] [place], [address]. tel:[phone] [facility], [address] [place], [address], [place] tel:[phone] [facility] [address] 1 month s/p Phaco (chief complaint) Follow-up examination after eye surgeryCombined forms of age-related cataract, left eye Nov-0 2-201 6 [place] [place]. [address] [place], [place], [id number] . tel:[phone] Referring Provider: Nile Cheung, [address] [place], [address]. tel:[phone] [facility], [address] [place], [address], [place] tel:[phone] [facility] [address] 1 wk s/p phaco (chief complaint) Follow-up examination after eye surgeryAge-relate d nuclear cataract, left eye Oct-0 3- 6 [place] [place]. [address] [place], [place], [id number] . tel:[phone] Referring Provider: Nile Cheung, [address] [place], [address]. tel:[phone] [facility] Physician s, [address] [place], [address], [place] tel:[phone] [facility] [address] 1 Day Phaco (chief complaint) Follow-up examination after eye surgery Sep-2 6 [place] [place]. [address] [place], [place], [id number] . tel:[phone] Referring Provider: Nile Cheung, [address] [place], [address]. tel:[phone] [facility], [address] [place], [address], [place] tel:[phone] [facility] Age-related nuclear cataract, right eye Sep-2 6-201 6 [place] [place]. [address] [place], [place], [id number] . tel:[phone] Referring Provider: Nile Cheung, [address] [place], [address]. tel:[phone] OFFICE/OUTPA TIENT VISIT, NEW [facility], [address] [facility], [place], [address], [phone] [facility] Cataract Consult per Dr. Yen (chief complaint) Mature cataractCombined form of senile cataract of left eyeDry eye syndrome, bilateralDiabetes mellitus without complicationOther age-related cataract 8-201 6 [place] [place]. [address], [place], [place], [id number] . [phone] Referring Provider: Nile Cheung, [address] [place], [address]. tel:[phone] Family History Family Member Type Diagnosis Age [...] unknown Payers Payer name Insurance type Covered democrat ID Authoriza tion(s) Self Pay [id number] Social History Type Description Quantity Date Captured [...]
--- NOTE | 2023-09-10 12:34 | XR_ITS ---
FINAL REPORT CLINICAL HISTORY: Foot pain COMPARISON: 08/26/2022 FINDINGS: 3 images of the left foot were obtained. Osteopenia is present. There is no evidence of fracture or dislocation. There is moderate osteoarthritis noted at the first MTP joint. Hammertoe deformities are noted, stable in appearance. There is a healed fracture of the distal fibula present. A plantar calcaneal spur is noted. There is no soft tissue abnormality identified. IMPRESSION: Moderate osteoarthritis of the first MTP joint. Hammertoes are present, along with a healed fracture of the distal fibula and a plantar calcaneal spur. Reviewed, Interpreted and Dictated by Buddy Sarabia MD Transcribed by Iona Schwarz Authenticated and [facility]
== END 2023-09-10 23:59 | disposition home or self-care (01) ==
LOC: RAD 12:28
PROVIDERS: PCP Family Medicine; Visit Provider Podiatrist
DX: M79.672 Pain in left foot (principal)
CPT/HCPCS: 73630

== ENCOUNTER 2023-11-14 10:07 | Outpatient (CLI) | payer MEDICARE, OTHER, SELFPAY ==
--- NOTE | 2023-11-14 10:13 | XR_ITS ---
FINAL REPORT CLINICAL HISTORY: Foot pain COMPARISON: 09/10/2023 FINDINGS: LEFT FOOT Three views of the left foot demonstrate no acute fracture or dislocation. The visualized joint spaces are normally aligned. Osteoarthritic change remains present in the first MTP joint, as well as hammertoe deformities. A healed fracture of the distal fibula is again noted. A pes planus deformity is present, as well as a moderate plantar calcaneal spur. The soft tissues are unremarkable. IMPRESSION: No acute bony abnormality, with chronic changes as described above. Reviewed, Interpreted and Dictated by Buddy Sarabia MD Transcribed by Iona Schwarz Authenticated and . [facility]
--- OUTSIDE RECORDS SUMMARY | 2023-11-14 10:13 | XMS_ITS | Continuity of Care Document ---
Author Organization [facility] Address [address] [place] [address] Phone Care Team Providers Care Livestock Ranch Hand Name Role Phone Cliff Sargent MD Unavailable [...] exceed 16 mg/day 4 MG - Active ketorolac 0.5 % eye drops instill 1 drop by ophthalmic route 4 times every day into left eye after surgery - No Longer Active Please call if too expensive or not covered. Pred Forte 1 % eye drops,suspension instill [...] Copied on Encounter [facility], [address] [place], [address], [place] tel:[phone] [facility] s/p 1 month Phaco (chief complaint) Follow-up examination after eye surgery 7 [address]. [address] [place], [place], [id number] . tel:[phone] Referring Provider: Nile Cheung, [address] [place], [address]. tel:[phone] [facility], [address] [place], [address], [place] tel:[phone] [facility] [address] 1 week s/p phaco (chief complaint) Follow-up examination after eye surgery 6 [address]. [address] [place], [place], [id number] . tel:[phone] Referring Provider: Nile Cheung, [address] [place], [address]. tel:[phone] [facility], [address] [place], [address], [place] tel:[phone] [facility] [address] 1 day s/p Phaco OS (chief complaint) Encntr for f/u exam aft trtmt for cond oth than malig neoplm 6 [address]. [address] [place], [place], [id number] . tel:[phone] Referring Provider: Nile Cheung, [address] [place], [address]. tel:[phone] [facility], [address] [place], [address], [place] tel:[phone] [facility] Age-related nuclear cataract, left eye 6 [address]. [address] [place], [place], [id number] . tel:[phone] Referring Provider: Nile Cheung, [address] [place], [address]. tel:[phone] [facility], [address] [place], [address], [place] tel:[phone] [facility] [address] 1 month s/p Phaco (chief complaint) Follow-up examination after eye surgeryCombined forms of age-related cataract, left eye Nov-0 2-201 6 [address]. [address] [place], [place], [id number] . tel:[phone] Referring Provider: Nile Cheung, [address] [place], [address]. tel:[phone] [facility], [address] [place], [address], [place] tel:[phone] [facility] [address] 1 wk s/p phaco (chief complaint) Follow-up examination after eye surgeryAge-relate d nuclear cataract, left eye Oct-0 3-201 6 [address]. [address] [place], [place], [id number] . tel:[phone] Referring Provider: Nile Cheung, [address] [place], [address]. tel:[phone] [facility], [address] [place], [address], [place] tel:[phone] [facility] [address] 1 Day Phaco (chief complaint) Follow-up examination after eye surgery Sep-2 7 6 [address] [place], [place], [id number] . tel:[phone] Referring Provider: Nile Cheung, [address] [place], [address]. tel:[phone] [facility], [address] [place], [address], [place] tel:[phone] [facility] Age-related nuclear cataract, right eye Sep-2 6-201 6 [address]. [address] [place], [place], [id number] . tel:[phone] Referring Provider: Nile Cheung, [address] [place], [address]. tel:[phone] OFFICE/OUTPA TIENT VISIT, NEW [facility], [address], [place], [address], [phone] [facility] Cataract Consult per Dr. Yen (chief complaint) Mature cataractCombined form of senile cataract of left eyeDry eye syndrome, bilateralDiabetes mellitus without complicationOther age-related cataract 8201 6 [address]. [address], [place], [place], [id number] . [phone] Referring Provider: Nile Cheung, [address] [place], [address]. tel:[phone] Family History Family Member Type Diagnosis Age [...] democrat ID Authoriza tion(s) Self Pay 09 [id number] Social History Type Description Quantity Date Captured [...]
== END 2023-11-14 23:59 | disposition home or self-care (01) ==
LOC: RAD 10:10
PROVIDERS: PCP Family Medicine; Visit Provider Podiatrist
DX: M79.672 Pain in left foot (principal)
CPT/HCPCS: 73630

== ENCOUNTER 2023-12-19 10:05 | Outpatient (CLI) | payer MEDICARE, OTHER, SELFPAY ==
--- OUTSIDE RECORDS SUMMARY | 2023-12-19 10:08 | XMS_ITS ---
Author Organization [facility] Address [address] [place] [phone] Care Team Providers Care Roofer Assistant Name Role Phone Lexi Carsonfer Unavailable [phone] ALLERGIES Allergen (clinical drug ingredient) Drug/Non Drug Allergy documented on EMR Reaction Allergy Type Onset Date Status No Known Drug Allergy Unknown Drug Allergy Active REASON FOR VISIT I'm moving to higher care MEDICATIONS Medication SIG (Take, Route, Frequency, Duration) Notes Start Date End Date Status Escitalopram Oxalate 10 MG 1 tablet Oral ly Once a day Active Prazosin HCl 1 MG 3 capsules daily at bedtime Orally Active Benztropine Mesylate 1 MG 1 tablet Orall y twice a day Active busPIRone HCl 10 MG 1 tablet Orally Twic e a day Active Donepezil HCl 10 MG 1 tablet at bedtime Orally Once a day Active Lurasidone HCl 120 MG 1 tablet once iftikhar y at noon with food Orally Active Encounters Encounter Location Date Provider Diagnosis [facility] [address] [place] [phone] 12/09/2023 Jeannie Carson Schizoaffective diso rder F25.9 ; Generalized anxiety disorder F41.1 ; 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 Patient is aware of upcoming move to higher level of care and appears to be accepting this change. 2) Continue to provide psychiatric support and medication management. Please call with signs of distress or mood changes that arise. Total time spent assessing patient, reviewing chart, and coordinating care: 32 minutes PLAN OF TREATMENT Medication Medication Name Sig Start Date Stop Date Notes Escitalopram Oxalate 10 MG 1 tablet Orally Once a day Prazosin HCl 1 MG 3 capsules daily at bedtime Orally Benztropine Mesylate 1 MG 1 tablet Orally twice a day busPIRone HCl 10 MG 1 tablet Orally Twice a day Donepezil HCl 10 MG 1 tablet at bedtime Orally Once a day Lurasidone HCl 120 MG 1 tablet once iftikhar y at noon with food Orally Treatment Notes Assessment Notes Other 1) No changes to psychotropic medication regimen at this time. Patient is aware of upcoming move to higher level of care and appears to be accepting this change. 2) Continue to provide psychiatric support and medication management. Please call with signs of distress or mood changes that arise. Total time spent assessing patient, reviewing chart, and coordinating care: 32 minutes Next Appt Details Follow Up: 1-2 months and as needed, Reason: Progress Notes * Susan CAINcandieDOB: (63 yo F)Acc No.[id number]:12/09/2023 Progress Notes Patient:??Rosalia CAIN Provider:??Jeannie Carson APRN :1960?Age:63 Y?Sex:Fe male Date:12/09/2023 Address:[address] [place] [address] Subjective: * Chief Complaints: * ? I'm moving to higher care * HPI: ?Psychiatric Status:? Patient is seen for a follow up visit to provide psychotropic medication management and to monitor mood and psychosis symptoms. Patient is being treated for schizoaffective disorder, anxiety disorder, insomnia, and paranoid personality disorder. Staff reported patient continues with physical and cognitive decline and has been referred to higher level of care. Staff reported patient exhibits overall stable mood with no new behavioral issues. Patient requested visit today and was seen while in the milieu today visit today. Patient stated, I'm moving to higher care. Patient stated she misses her dog already. Patient appeared anxious but appeared to understand plans to changes in her care. Patient was alert and talkative today. Patient exhibited baseline tremors. Patient's speech was difficult to understand, however, appeared to be at her baseline. Patient was evaluated for new side effects associated with psychotropic medications with none reported or observed during visit today. Clinician provided follow up assessment and consulted with staff. Risks, benefits, and side effects of all psychotropic medications were monitored and reconsidered. * ROS:?ROS completed and negative to chief complaint unless otherwise noted in HPI. * Medical History:?? * Surgical History:??Available for review in patient's record at facility * Hospitalization/Major Diagno stic Procedure:??No psychiatric hospitalizations in the last 5 years * Family History:??Father: dec eased.??Mother: .??Sister(s): alive.?? * Social History:?Patient has good support from her sister who is very involved in her care. * Medications:??TakingLurasido ne HCl 120 MG Tablet 1 tablet once daily at noon with food Orally Prazosin HCl 1 MG Capsule 3 capsules daily at bedtime Orally Escitalopram Oxalate 10 MG Tablet 1 tablet Orally Once a day Donepezil HCl 5 MG Tablet 1 tablet at bedtime Orally Once a day busPIRone HCl 10 MG Tablet 1 tablet Orally Twice a day Benztropine Mesylate 1 MG Tablet 1 tablet Orally twice a day Taking Lurasidone HCl 120 MG Tablet 1 tablet once daily at noon with food Orally Taking Prazosin HCl 1 MG Capsule 3 capsules daily at bedtime Orally Taking Escitalopram Oxalate 10 MG Tablet 1 tablet Orally Once a day Taking Donepezil HCl 5 MG Tablet 1 tablet at bedtime Orally Once a day Taking busPIRone HCl 10 MG Tablet 1 tablet Orally Twice a day Taking Benztropine Mesylate 1 MG Tablet 1 tablet Orally twice a day * Allergies:??No Known Drug Al gertrude Objective: Assessment: * Assessment: 1.??Generalized anxiety diso rder - F41.1 (Primary)??2.??Schizoaffective disorder - F25.9??3.??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 Plan: * Treatment: 2.??Schizoaffective disorder ?? Continue Lurasidone HCl Tablet, 120 MG, 1 tablet once daily at noon with food, Orally.? 3.??Movement disorder?? Continue Benztropine Mesylate Tablet, 1 MG, 1 tablet, Orally, twice a day.? 4.??Insomnia?? Continue Prazosin HCl Capsule, 1 MG, 3 capsules daily at bedtime, Orally.? 5.??Others?? Continue Donepezil HCl Tablet, 10 MG, 1 tablet at bedtime, Orally, Once a day.? Notes: 1) No changes to psychotropic medication regimen at this time. Patient is aware of upcoming move to higher level of care and appears to be accepting this change. 2) Continue to provide psychiatric support and medication management. Please call with signs of distress or mood changes that arise. Total time spent assessing patient, reviewing chart, and coordinating care: 32 minutes ? * Procedure Codes:??97182 HOME VISIT EST PATIENT * Follow Up:??1-2 months and a s needed * Care Plan Details* * Sign off status: Completed true * Provider:??Jeannie Carson APRN Date:??0 12/09/2023
--- OUTSIDE RECORDS SUMMARY | 2023-12-19 10:08 | XMS_ITS ---
Author Organization [facility] Address [address] [place] [phone] Care Team Providers Care Manager Plan Name Role Phone Lexi Carsonfer Unavailable [phone] ALLERGIES Allergen (clinical drug ingredient) Drug/Non Drug Allergy documented on EMR Reaction Allergy Type Onset Date Status No Known Drug Allergy Unknown Drug Allergy Active REASON FOR VISIT Can you increase my medicine? MEDICATIONS Medication SIG (Take, Route, Frequency, Duration) Notes Start Date End Date Status Escitalopram Oxalate 10 MG 1 tablet Oral ly Once a day Active Prazosin HCl 1 MG 3 capsules daily at bedtime Orally Active busPIRone HCl 10 MG 1 tablet Orally Twic e a day Active Donepezil HCl 10 MG 1 tablet at bedtime Orally Once a day Active Lurasidone HCl 120 MG 1 tablet once iftikhar y at noon with food Orally Active Benztropine Mesylate 1 MG 1 tablet Orall y twice a day Active Encounters Encounter Location Date Provider Diagnosis [facility] [address] [place] [phone] 10/13/2023 Jeannie Carson Schizoaffective diso rder F25.9 ; Generalized anxiety disorder F41.1 ; 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 No changes to psychotropic medication regimen at this time. 2) Continue to provide psychiatric support and medication management. Please call with signs of distress or mood changes that arise. Total time spent assessing patient, reviewing chart, and coordinating care: 33 minutes PLAN OF TREATMENT Medication Medication Name Sig Start Date Stop Date Notes Escitalopram Oxalate 10 MG 1 tablet Orally Once a day Prazosin HCl 1 MG 3 capsules daily at bedtime Orally busPIRone HCl 10 MG 1 tablet Orally Twice a day Donepezil HCl 10 MG 1 tablet at bedtime Orally Once a day Lurasidone HCl 120 MG 1 tablet once iftikhar y at noon with food Orally Benztropine Mesylate 1 MG 1 tablet Orally twice a day Treatment Notes Assessment Notes Other 1) Patient may need higher level of care in the near future due to physical and cognitive decline. No changes to psychotropic medication regimen at this time. 2) Continue to provide psychiatric support and medication management. Please call with signs of distress or mood changes that arise. Total time spent assessing patient, reviewing chart, and coordinating care: 33 minutes Next Appt Details Follow Up: 1-2 months and as needed, Reason: Progress Notes * Susan CAINcandieDOB: (63 yo F)Acc No.[id number]:10/13/2023 Progress Notes Patient:??Rosalia CAIN Provider:??Jeannie Carson APRN :1960?Age:63 Y?Sex:Fe male Date:10/13/2023 Address:[address] [place] [address] Subjective: * Chief Complaints: * ? Can you increase my m edicine? * HPI: ?Psychiatric Status:? Patient is seen for a follow up visit to provide psychotropic medication management and to monitor mood and psychosis symptoms. Patient is being treated for schizoaffective disorder, anxiety disorder, insomnia, and paranoid personality disorder. Staff reported patient continues with physical and cognitive decline. Staff reported patient exhibits overall stable mood with no new behavioral issues. Patient was seen while in the milieu today visit today. Patient stated, Can you increase my medication? Patient stated she is still having bad dreams. Patient verbalized baseline delusions of paranoia toward police. Patient was alert and talkative today. Patient exhibited baseline tremors. Patient's speech was more difficult to understand today. 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 Plan: * Treatment: 2.??Generalized anxiety diso rder?? Continue Escitalopram Oxalate Tablet, 10 MG, 1 tablet, Orally, Once a day;??Continue busPIRone HCl Tablet, 10 MG, 1 tablet, Orally, Twice a day.? 3.??Movement disorder?? Continue Benztropine Mesylate Tablet, 1 MG, 1 tablet, Orally, twice a day.? 4.??Insomnia?? Continue Prazosin HCl Capsule, 1 MG, 3 capsules daily at bedtime, Orally.? 5.??Others?? Continue Donepezil HCl Tablet, 10 MG, 1 tablet at bedtime, Orally, Once a day.? Notes: 1) Patient may need higher level of care in the near future due to physical and cognitive decline. No changes to psychotropic medication regimen at this time. 2) Continue to provide psychiatric support and medication management. Please call with signs of distress or mood changes that arise. Total time spent assessing patient, reviewing chart, and coordinating care: 33 minutes ? * Procedure Codes:??20481 HOME VISIT EST PATIENT * Follow Up:??1-2 months and a s needed * Care Plan Details* * Sign off status: Completed true * Provider:??Jeannie Carson APRN Date:??0 10/13/2023
--- OUTSIDE RECORDS SUMMARY | 2023-12-19 10:08 | XMS_ITS ---
Author Organization [facility] Address [address] [place] [phone] Care Team Providers Care Social Media Content Specialist Name Role Phone Jeannie Carson Unavailable [phone] ALLERGIES Allergen (clinical drug ingredient) Drug/Non Drug Allergy documented on EMR Reaction Allergy Type Onset Date Status No Known Drug Allergy Unknown Drug Allergy Active REASON FOR VISIT I dreamed the internet developer cut off my head MEDICATIONS Medication SIG (Take, Route, Frequency, Duration) Notes Start Date End Date Status Prazosin HCl 1 MG 3 capsules daily at bedtime Orally Active Benztropine Mesylate 1 MG 1 tablet Orall y twice a day Active busPIRone HCl 10 MG 1 tablet Orally Twic e a day Active Donepezil HCl 10 MG 1 tablet at bedtime Orally Once a day Active Escitalopram Oxalate 10 MG 1 tablet Oral ly Once a day Active Lurasidone HCl 120 MG 1 tablet once iftikhar y at noon with food Orally Active PROBLEMS Problem Type ICD Code Onset Dates Problem Status W/U Status Risk SNOMED Code Notes Problem Schizoaffective disorder (F25.9) Active confirmed Schizoaffec tive disorder (37902852) Problem Generalized anxiety disorder (F41.1) Active confirmed Generalized anxiety disorder (42291342) Problem Paranoid personality disorder (F60.0) Active confirmed Paranoid personality disorder (80212036) Problem Movement disorder (G25.9) Active confirmed Movement disord er (73732114) Problem Insomnia (G47.00) Active confirmed Inso mnia (705594211) Encounters Encounter Location Date Provider Diagnosis [facility] [address] [place] [phone] 09/16/2023 Jeannie Carson Schizoaffective diso rder F25.9 ; Generalized anxiety disorder F41.1 ; 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 2) Continue to provide psychiatric support and medication management. Please call with signs of distress or mood changes that arise. Total time spent assessing patient, reviewing chart, and coordinating care: 37 minutes PLAN OF TREATMENT Medication Medication Name Sig Start Date Stop Date Notes Prazosin HCl 1 MG 3 capsules daily at bedtime Orally Benztropine Mesylate 1 MG 1 tablet Orally twice a day busPIRone HCl 10 MG 1 tablet Orally Twice a day Donepezil HCl 10 MG 1 tablet at bedtime Orally Once a day Escitalopram Oxalate 10 MG 1 tablet Orally Once a day Lurasidone HCl 120 MG 1 tablet once iftikhar y at noon with food Orally Treatment Notes Assessment Notes Other 1) Continue current regimen as patient's symptoms are improved at the lowest effective dose and patient has achieved maximal functioning and able to be cared for appropriately. 2) Continue to provide psychiatric support and medication management. Please call with signs of distress or mood changes that arise. Total time spent assessing patient, reviewing chart, and coordinating care: 37 minutes Next Appt Details Follow Up: 1-2 months and as needed, Reason: Progress Notes * Kaylyn CAINeDOB: (63 yo F)Acc No.[id number]:09/16/2023 Progress Notes Patient:??KATHY Rosalia Provider:??Jeannie Carson APRN :1960?Age:63 Y?Sex:Fe male Date:09/16/2023 Address:[address] [place], [place] [id number] Subjective: * Chief Complaints: * ? I dreamed the internet developer cu t off my head * HPI: ?Psychiatric Status:? Patient is seen for a follow up visit to provide psychotropic medication management and to monitor mood and psychosis ?symptoms. Patient is being treated for schizoaffective disorder, anxiety disorder, insomnia, and paranoid personality disorder. Staff denied any significant changes to cognition since last visit. Staff reported patient continues to exhibit progressing cognitive issues. Staff reported patient exhibits overall stable mood with no new behavioral issues. Patient was seen while in the milieu today visit today. Patient stated she has had issues with her feet but they are getting better. Patient verbalized baseline delusions of paranoia toward police. Patient was alert and talkative today. Patient exhibited baseline dysarthria and tremors. Patient was better able to be understood today. Patient was evaluated for new side [...] is very involved in her care. * Medications:??TakingPrazosin HCl 1 MG Capsule 3 capsules daily at bedtime Orally Lurasidone HCl 120 MG Tablet 1 tablet once daily at noon with food Orally Escitalopram Oxalate 10 MG Tablet 1 tablet Orally Once a day Donepezil HCl 10 MG Tablet 1 tablet at bedtime Orally Once a day busPIRone HCl 10 MG Tablet 1 tablet Orally Twice a day Benztropine Mesylate 1 MG Tablet 1 tablet Orally twice a day Taking Prazosin HCl 1 MG Capsule 3 capsules daily at bedtime Orally Taking Lurasidone HCl 120 MG Tablet 1 tablet once daily at noon with food Orally Taking Escitalopram Oxalate 10 MG Tablet [...] bedtime, Orally, Once a day.? Notes: 1) Continue current regimen as patient's symptoms are improved at the lowest effective dose and patient has achieved maximal functioning and able to be cared for appropriately. 2) Continue to provide psychiatric support and medication management. Please call with signs of distress or mood changes that arise. Total time spent assessing patient, reviewing chart, and coordinating care: 37 minutes ? * Procedure Codes:??13046 HOME VISIT EST PATIENT * Follow Up:??1-2 months and a s needed * Care Plan Details* * Sign off status: Completed true * Provider:??Jeannie Carson APRN Date:??0 09/16/2023
--- OUTSIDE RECORDS SUMMARY | 2023-12-19 10:08 | XMS_ITS | Patient Health Record ---
Author Organization [facility] Address [address] [place] [id number] Care Team Providers Care Aerospace Manager Name Role Phone Jeannie Carson Unavailable [phone] ALLERGIES Allergen (clinical drug ingredient) Drug/Non Drug Allergy documented on EMR Reaction Allergy Type Onset Date Status No Known Drug Allergy Unknown Drug Allergy Active REASON FOR REFERRAL No Information MEDICATIONS Medication SIG (Take, Route, Frequency, Duration) Notes Start Date End Date Status Escitalopram Oxalate 10 MG 1 tablet Oral ly Once a day Active Prazosin HCl 1 MG 3 capsules daily at bedtime Orally Active Lurasidone HCl 120 MG 1 tablet once iftikhar y at noon with food Orally Active Benztropine Mesylate 1 MG 1 tablet Orall y twice a day Active busPIRone HCl 10 MG 1 tablet Orally Twic e a day Active Donepezil HCl 10 MG 1 tablet at bedtime Orally Once a day Active PROBLEMS Problem Type ICD Code Onset Dates Problem Status W/U Status Risk SNOMED Code Notes Problem Schizoaffective disorder (F25.9) Active confirmed Schizoaffec tive disorder (30292947) Problem Generalized anxiety disorder (F41.1) Active confirmed Generalized anxiety disorder (31923148) Problem Paranoid personality disorder (F60.0) Active confirmed Paranoid personality disorder (92874028) Problem Movement disorder (G25.9) Active confirmed Movement disord er (22936206) Problem Insomnia (G47.00) Active confirmed Inso mnia (569824736) Encounters Encounter Location Date Provider Diagnosis [facility] [address] [place] [phone] 09/16/2023 Jeannie Carson Schizoaffective diso rder F25.9 ; Generalized anxiety disorder F41.1 ; 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 ; Movement disorder G25.9 and Insomnia G47.00 [facility] [address] [place] [address] 10/13/2023 Jeannie Carson Schizoaffective diso rder F25.9 ; Generalized anxiety disorder F41.1 ; 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 ; Movement disorder G25.9 and Insomnia G47.00 [facility] [address] [place] [address] 12/09/2023 Jeannie Carson Schizoaffective diso rder F25.9 ; Generalized anxiety disorder F41.1 ; 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 ; Movement disorder G25.9 and Insomnia G47.00 ASSESSMENTS Encounter Date Diagnosis Assessment Notes Treatment Notes Treatment Clinical Notes 09/16/2023 Generalized anxiety disorder (ICD-10 - F41.1) 09/16/2023 Schizoaffective disorder (ICD-10 - F25.9) 10/13/2023 Schizoaffective disorder (ICD-10 - F25.9) 12/09/2023 Generalized anxiety disorder (ICD-10 - F41.1) 12/09/2023 Schizoaffective disorder (ICD-10 - F25.9) 09/16/2023 Paranoid personality disorder (ICD-10 - F60.0) 10/13/2023 Generalized anxiety disorder (ICD-10 - F41.1) 12/09/2023 Paranoid personality disorder (ICD-10 - F60.0) 09/16/2023 Movement disorder (ICD-10 - G25.9) 10/13/2023 Paranoid personality disorder (ICD-10 - F60.0) 12/09/2023 Movement disorder (ICD-10 - G25.9) 09/16/2023 Insomnia (ICD-10 - G47.00) 10/13/2023 Movement disorder (ICD-10 - G25.9) 12/09/2023 Insomnia (ICD-10 - G47.00) 10/13/2023 Insomnia (ICD-10 - G47.00) 09/16/2023 Other 1) [...] reviewing chart, and coordinating care: 37 minutes 10/13/2023 Other 1) Patient may need higher level of care in the near future due to physical and cognitive decline. No changes to psychotropic medication regimen at this time. 2) Continue to provide psychiatric support and medication management. Please call with signs of distress or mood changes that arise. Total time spent assessing patient, reviewing chart, and coordinating care: 33 minutes 12/09/2023 Other 1) No changes to psychotropic [...] coordinating care: 32 minutes PLAN OF TREATMENT No Information Insurance Providers Payer Name Payer Address Payer Phone Subscriber Number Group Number Insured Name Patient Relationship to Insured Coverage Start Date Coverage End Date [employer] [place] [address] [place] [address] [id number] Rosalia Cain Self - patient is the insured MEDICAL (GENERAL) HISTORY Medical History History ICD Code HDL pain anemia hypothyroidism HTN Surgical History Surgery Date(Month/Year) Available for review in patient's record at facility Hospitalization History Reason Date(Month/Year) No psychiatric hospitalizations in the l ast 5 years
--- NOTE | 2023-12-19 10:11 | XR_ITS ---
FINAL REPORT CLINICAL HISTORY: [facility] evaluation FINDINGS: LEFT FOOT Three views of the left foot demonstrate no acute fracture or dislocation. There are chronic fractures of the distal 3rd and 4th metatarsals. There is valgus angulation of the mid and forefoot. Moderate degenerative changes are seen with mild pes planus deformity. There is a plantar calcaneal spur. Soft tissues are unremarkable. IMPRESSION: Planovalgus deformity. Moderate degenerative changes. Chronic 3rd and 4th metatarsal fractures. Reviewed, Interpreted and Dictated by Evans Pederson III, MD Transcribed by Raven Bashir Authenticated and [facility]
== END 2023-12-19 23:59 | disposition home or self-care (01) ==
LOC: RAD 10:06
PROVIDERS: PCP Family Medicine; Visit Provider Nurse Practitioner
DX: M14.672 Charcot's joint, left ankle and foot (principal)
CPT/HCPCS: 73630